=== PATIENT | male | born 1960 | race Caucasian/White ===

== ENCOUNTER 2021-02-10 19:45 | Emergency (ER) | payer OTHER ==
[~2021-02-10 19:45] MED LIST: LIPITOR 10MG TA10 MG PO; PLAVIX75 MG PO; PRINIVIL10 MG PO
[2021-02-10] MEDS ORDERED: NORCO 5-325 TA1 EACH PO (22:51)
== END 2021-02-10 23:13 | disposition home or self-care (01) ==
LOC: FER 19:45
DX: S52.502A Unspecified fracture of the lower end of left radius, initial encounter for closed fracture (principal); M79.622 Pain in left upper arm; I10 Essential (primary) hypertension; F17.210 Nicotine dependence, cigarettes, uncomplicated; Z88.0 Allergy status to penicillin; Z88.6 Allergy status to analgesic agent; W17.89XA Other fall from one level to another, initial encounter; Y92.89 Other specified places as the place of occurrence of the external cause; Y99.0 Civilian activity done for income or pay
CPT/HCPCS: 73060; 73110; 73200

== ENCOUNTER → 2021-08-03 | Day surgery (SDC) | payer OTHER ==
[~2021-08-03] VITALS: Ht 180.3 cm; Wt 75.1 kg
[~2021-08-03] MED LIST changes: +BLOOD PRESSURE PILL PO; +DICLOFENAC SODI75 MG PO; +NORCO 5-325 TA1 EACH PO
[2021-08-03 06:41] LABS: HCT 46.4 % (42.0-52.0); HGB 15.8 g/dl (13.2-18.0); MCH 31.6 pg (25.0-31.0); MCHC 34.1 g/dL (32.0-36.0); MCV 92.8 fL (78.0-100.0); MPV 10.8 fL (6.0-9.5); RDW 13.6 % (11.5-14.0); WBC 9.5 K/uL (4.0-10.5)
[2021-08-03 07:03] LABS: ALBUMIN 3.5 g/dL (3.4-5.0); BILIRUBIN - TOTAL 0.3 mg/dL (0.2-1.0); BUN/CREAT RATIO (CALC) 17.8 RATIO; CREATININE 0.73 mg/dL (0.67-1.17); GLOBULIN (CALCULATION) 3.4 g/dL; POTASSIUM 3.8 mmol/L (3.5-5.1); TOTAL PROTEIN 6.9 g/dL (6.4-8.2)
== END | disposition home or self-care (01) ==
LOC: FAS 05:47
PROVIDERS: Orthopaedic Surgery
DX: M75.122 Complete rotator cuff tear or rupture of left shoulder, not specified as traumatic (principal); S43.432A Superior glenoid labrum lesion of left shoulder, initial encounter; M19.012 Primary osteoarthritis, left shoulder; M75.92 Shoulder lesion, unspecified, left shoulder; M75.52 Bursitis of left shoulder; X58.XXXA Exposure to other specified factors, initial encounter
CPT/HCPCS: 36415; 71045; 80053; 93005; C1713; J0171; J0735; J1100; J1885; J2250; J2405; J2704; J2795; J3010; J7120